=== PATIENT | female | born 1940 | race Caucasian/White ===

== ENCOUNTER 2016-10-16 19:33 | Emergency (ER) | payer OTHER, SELFPAY ==
[~2016-10-16 19:33] MED LIST: COUMADIN2.5 MG PO
== END 2016-10-16 22:05 | disposition home or self-care (01) ==
LOC: ER 19:33
DX: S01.81XA Laceration without foreign body of other part of head, initial encounter (principal); W22.8XXA Striking against or struck by other objects, initial encounter
CPT/HCPCS: 90471